=== PATIENT | male | born 1955 ===

== ENCOUNTER 2022-07-11 08:18 | Outpatient (CLI) | payer MEDICARE, MEDICAID, SELFPAY ==
--- NOTE | 2022-07-11 08:15 | RT.EKG_ITS ---
APPROVED REPORT Exam: Resting ECG Reason for Exam: palpitations Patient Location: O HR:89 bpm ECG Measurements Heart Rate 89 AXIS UT 212 P -22 QRSd 92 QRS 6 QT 353 T -12 QTc 430 Conclusion Sinus rhythm...normal P axis, V-rate 50- 99 Borderline first-degree AV block
== END 2022-07-11 08:19 | disposition home or self-care (01) ==
LOC: DI.CARD 08:20
PROVIDERS: PCP Family Medicine; Visit Provider Internal Medicine Cardiovascular Disease
DX: R00.2 Palpitations (principal); R94.31 Abnormal electrocardiogram [ECG] [EKG]
CPT/HCPCS: 93010

== ENCOUNTER → 2022-07-11 10:56 | Outpatient (BNVA) | payer MEDICARE, SELFPAY | PROVIDERS: PCP Family Medicine; Visit Provider Internal Medicine Cardiovascular Disease | DX: I35.0 Nonrheumatic aortic (valve) stenosis (principal); I44.0 Atrioventricular block, first degree | CPT/HCPCS: 93005; 99203 ==

== ENCOUNTER 2023-11-04 08:16 | Outpatient (CLI) | payer MEDICARE, SELFPAY ==
--- NOTE | 2023-11-04 08:15 | RT.EKG_ITS ---
APPROVED REPORT Exam: Resting ECG Reason for Exam: palpitations Patient Location: O HR:80 bpm ECG Measurements Heart Rate 80 AXIS ID 207 P 18 QRSd 100 QRS -2 QT 365 T -8 QTc 421 Conclusion Sinus rhythm...normal P axis, V-rate 50- 99 Poor R wave progression
== END 2023-11-04 08:17 | disposition home or self-care (01) ==
LOC: DI.CARD 08:17
PROVIDERS: PCP Family Medicine; Visit Provider Internal Medicine Cardiovascular Disease
DX: I44.0 Atrioventricular block, first degree (principal); R00.2 Palpitations
CPT/HCPCS: 93010

== ENCOUNTER → 2023-11-04 13:49 | Outpatient (BNVA) | payer MEDICARE, SELFPAY | PROVIDERS: PCP Family Medicine; Referring Provider Family Medicine; Visit Provider Internal Medicine Cardiovascular Disease | DX: I35.0 Nonrheumatic aortic (valve) stenosis (principal); I44.0 Atrioventricular block, first degree; R00.2 Palpitations | CPT/HCPCS: 93005; 99213 ==

== ENCOUNTER 2024-12-21 00:58 | Outpatient (CLI) | payer MEDICARE, SELFPAY ==
--- NOTE | 2024-12-21 12:30 | DI.US_ITS ---
APPROVED REPORT EXAM: Comprehensive 2D, Doppler, and color-flow Echocardiogram Patient Location: Out-Patient Mortgage Banker: Abelardo Romero RDCS (AE) Indications: Check aortic stenosis Other Information Study Quality: Adequate Conclusion Normal left ventricular wall thickness and chamber size. Ejection fraction is 60 to 65%. Wall motio n is normal Normal right ventricular size and function Both atria are normal in size Aortic valve is sclerotic and trileaflet. There is mild aortic stenosis. Mean gradient is 12 mmHg, peak is 23 mmHg. Estimated right ventricular systolic pressure is 23 mmHg Ascending aorta measures 3.79 cm Wall motion Left Ventricle The left ventricle is normal size. The left ventricular systolic function is normal. The left ventric ular ejection fraction is within the normal range. There is normal left ventricular wall thickness. T here is normal LV segmental wall motion. There is no ventricular septal defect visualized. LVEF is 60 -65%. Right Ventricle The right ventricle is normal size. The right ventricular systolic function is normal. Atria The left atrium size is normal. The right atrium size is normal. The interatrial septum is intact wit h no evidence for an atrial septal defect. Aortic Valve Aortic valve is calcified. Aortic valve is trileaflet. Mild aortic stenosis. No aortic regurgitation is present. Mitral Valve The mitral valve is normal in structure. No evidence of mitral valve stenosis. There is no mitral yara ve regurgitation noted. Tricuspid Valve The tricuspid valve is normal in structure. There is no tricuspid valve stenosis. Mild tricuspid regu rgitation. The RVSP is 23.4mmHg. Pulmonic Valve The pulmonary valve is normal in structure. There is no pulmonic valvular stenosis. Mild pulmonic reg urgitation. Great Vessels The aortic root is normal in size. The ascending aorta is mildly dilated. Aortic arch is normal in ca liber. IVC is normal in size and collapses >50% with inspiration. Pericardium There is no pericardial effusion. 2D Dimensions IVSD d PLAX 0.78 cm M: 0.6-1.2 Ao Root d 3.07 cm M: 3.1 - 3.7 LVPW d PLAX 0.89 cm M: 0.6 - 1.2 Ao Asc Diam d 3.79 cm M: 2.6 - 3.4 LVID d PLAX 6.05 cm M: 4.2 - 5.8 LVDs 3.81 cm M: 2.5 - 4.0 LV EF Teichholz 66.1 % FS 37.11 % LV EDV (Teich) 183.5 mL LV ESV (Teich) 62.2 mL Stroke Vol Index (Teich) 58.91 M-Mode TAPSE 2.31 cm (M/F) >1.7 Auto EF LV EDV A4C 74.6 mL LV EDV A2C 54.9 mL LV EDV BP 64.0 mL LV ESV A4C 29.2 mL LV ESV A2C 21.8 mL LV ESV BP 25.4 mL LVEF(%) A4C 60.8 % LVEF(%) A2C 60.4 % LVEF(%) BP 60.3 % LV SV A4C 45.4 ml LV SV A2C 33.1 ml LV SV BP 38.6 ml LV CO A4C 4.0 L/min LV CO A2C 3.1 L/min LV CO BP 3.5 L/min HR A4C 87.59 BPM HR A2C 92.31 BPM LV EDV Index (BP) LA Volume LA Length A4C 3.6 cm LA Length A2C 4.4 cm LA Area A4C s 11.84 cm2 LA Area A2C s 10.04 cm2 LA Vol A4C A-L 33.34 mL LA Vol A2C A-L 19.64 mL LA Vol Biplane A-L 28.3 mL LA Vol/BSA A4C A-L LA Vol/BSA A2C A-L LA Vol/BSA BP A-L 13.7 mL/m2 LA Vol A4C MOD 31.2 mL LA Vol A2C MOD 18.0 mL LA Vol BP MOD 26.0 mL RA Volume RA Area A4C 8.6 cm2 RA ESV A4C (A-L) 14.0mL RA Vol/BSA A4C A-L RA Length A4C 4.5 cm RA ESV A4C (MOD) 13.5mL LV Diastology MV E' medial 0.087 (>0.07 m/s) MV E Vmax 0.58 (0.4-1.3 m/s) MV E/E' MED 6.70 (<14) MV A Vmax 0.90 (0.4-1.3 m/s) MV E' lateral 0.125 (>0.1 m/s) E/A Ratio 0.6 MV E/E' LAT 4.67 (<14) MV E' Average 0.106 m/s MV E/E'(average) 5.50 Aortic Valve AoV Vmax 2.38 m/s LVOT Diam s 2.00 cm AoV Peak Grad 22.7 mmHg AV Regurg Peak Gr. 22.67 mmHg AoV VTI 0.417 m AoV Mean Zachary. 1.61 m/s AoV Mean Grad 12.0 mmHg Mitral Valve MV DT 80 (160-240 msec) Tricuspid Valve RA Pressure 3.00 mmHg TR Vmax 2.26 m/s TV S' 0.17 m/s TR Peak Grad 20.3 mmHg RVSP (TR) 23.4 mmHg
== END 2024-12-21 01:18 ==
PROVIDERS: PCP Family Medicine; Visit Provider Internal Medicine Cardiovascular Disease
DX: I35.0 Nonrheumatic aortic (valve) stenosis (principal)
CPT/HCPCS: 93306